=== PATIENT | female | born 1975 | race Caucasian/White ===

== ENCOUNTER 2016-12-03 21:09 | Emergency (ER) | payer OTHER ==
[~2016-12-03] VITALS: Ht 170.1 cm; Wt 76.2 kg
[2016-12-03 21:15] VITALS: BP 130/100
[2016-12-03] MEDS ORDERED: MEDROL DOSEPAK4 MG PO (21:53)
== END 2016-12-03 21:20 | disposition home or self-care (01) ==
LOC: ED 21:09
DX: R21 Rash and other nonspecific skin eruption (principal); F17.200 Nicotine dependence, unspecified, uncomplicated

== ENCOUNTER → 2020-04-14 | Outpatient (CLI) | payer OTHER ==
[~2020-04-14] MED LIST: MEDROL DOSEPAK4 MG PO
== END | disposition home or self-care (01) ==
LOC: COVID19 12:34
PROVIDERS: ATTEND Internal Medicine
DX: U07.1 COVID-19 (principal)